=== PATIENT | male | born 1980 | race Two or more races ===

== ENCOUNTER 2022-12-15 07:54 | Outpatient (CLI) | payer OTHER | END 2022-12-15 07:55 | disposition home or self-care (01) | LOC: ULT 07:54 | PROVIDERS: ATTEND Internal Medicine | DX: R10.11 Right upper quadrant pain (principal); B18.2 Chronic viral hepatitis C; K80.20 Calculus of gallbladder without cholecystitis without obstruction | CPT/HCPCS: 76705 ==